=== PATIENT | female | born 1965 | race Caucasian/White ===

== ENCOUNTER 2020-02-03 16:12 | Emergency (ER) | payer OTHER ==
[~2020-02-03] VITALS: Ht 160 cm; Wt 93.0 kg
[2020-02-03] MEDS ORDERED: LANTUS SUBQ (16:20)
[2020-02-03] MEDS ORDERED: METFORMIN HCL500 M3 PO (16:20)
[2020-02-03] MEDS ORDERED: LIALDA1.2 GM PO (16:20)
[2020-02-03] MEDS ORDERED: LIPITOR20 MG PO (16:21)
[2020-02-03] MEDS ORDERED: PRINIVIL10 MG PO (16:21)
[2020-02-03 16:54] LABS: URINE BILIRUBIN NEGATIVE (Negative); URINE BLOOD TRACE (Negative); URINE CLARITY CLEAR; URINE COLOR YELLOW; URINE GLUCOSE-RANDOM NEGATIVE (Negative); URINE KETONES NEGATIVE (Negative); URINE LEUKOCYTES-REFLEX 1+ (Negative); URINE NITRITE-REFLEX NEGATIVE (Negative); URINE PROTEIN NEGATIVE (Negative); URINE UROBILINOGEN 0.2 E.U./dl (0.2-1.0)
[2020-02-03 16:59] LABS: HYALINE CASTS 0-3 Few /LPF (None Seen)
[2020-02-03 17:00] LABS: CRYSTALS None Seen /LPF (None Seen); MUCUS 0-3 Light strn/LPF (None Seen); SQUAMOUS >10 Many /LPF (0-3); URINE RBC 0-2 Rare /HPF (0-2)
[2020-02-03 17:01] LABS: ABSOLUTE LYMPHOCYTES 2.2 thou/uL (0.8-5.3); ABSOLUTE MONOCYTES 0.5 thou/uL (0.0-1.2); ABSOLUTE NEUTROPHILS 1.7 thou/uL (1.6-8.1); BASOPHILS 0.8 %; EOSINOPHILS 0.2 %; HEMATOCRIT 44.1 % (37.0-47.0); HEMOGLOBIN 15.6 gm/dL (12.0-15.0); LYMPHOCYTES 48.8 %; MCH 33.7 pg (26.0-34.0); MCHC 35.3 g/dL (28.0-37.0); MCV 95.5 fL (80.0-100.0); MONOCYTES 11.2 %; NUCLEATED RBCS 0 /100WBC; PLATELET COUNT* 172 thou/uL (150-400); RBC 4.62 mil/uL (4.20-5.00); WBC 4.4 thou/uL (4.0-11.0)
[2020-02-03 17:33] LABS: CALCIUM 8.1 mg/dL (8.5-10.1); CREATININE 1.1 mg/dL (0.6-1.3); POTASSIUM 3.6 mmol/L (3.5-5.1)
[2020-02-03 17:41] LABS: ALBUMIN 3.4 g/dL (3.4-5.0); TOTAL BILIRUBIN 0.4 mg/dL (<0.1-1.0); TOTAL PROTEIN 7.5 g/dL (6.4-8.2)
[2020-02-03] MEDS ORDERED: HYDROCODON-ACE1 EAC7 PO (18:14)
[2020-02-03] MEDS ORDERED: ZPAK PO (18:14)
[2020-02-03 18:34] VITALS: BP 104/60
== END 2020-02-03 18:36 | disposition home or self-care (01) ==
LOC: M.ERS 16:12
PROVIDERS: Personal Emergency Response Attendant
DX: N39.0 Urinary tract infection, site not specified (principal); R11.2 Nausea with vomiting, unspecified; E11.9 Type 2 diabetes mellitus without complications; K50.90 Crohn's disease, unspecified, without complications; Z79.4 Long term (current) use of insulin; Z90.710 Acquired absence of both cervix and uterus

== ENCOUNTER 2020-02-08 10:56 | Emergency (ER) | payer OTHER ==
[~2020-02-08] VITALS: Ht 162.6 cm; Wt 90.7 kg
[~2020-02-08 10:56] MED LIST: HYDROCODON-ACE1 EAC7 PO; LANTUS SUBQ; LIALDA1.2 GM PO; LIPITOR20 MG PO; METFORMIN HCL500 M3 PO; PRINIVIL10 MG PO; ZPAK PO
[2020-02-08 11:58] LABS: ABSOLUTE LYMPHOCYTES 1.6 thou/uL (0.8-5.3); ABSOLUTE MONOCYTES 0.5 thou/uL (0.0-1.2); ABSOLUTE NEUTROPHILS 5.1 thou/uL (1.6-8.1); BASOPHILS 0.3 %; HEMATOCRIT 43.9 % (37.0-47.0); HEMOGLOBIN 15.7 gm/dL (12.0-15.0); LYMPHOCYTES 21.8 %; MCH 33.5 pg (26.0-34.0); MCHC 35.7 g/dL (28.0-37.0); MCV 93.9 fL (80.0-100.0); MONOCYTES 6.8 %; MPV 7.3 fl. (7.2-11.1); NUCLEATED RBCS 0 /100WBC; PLATELET COUNT* 199 thou/uL (150-400); POLYS 71.1 %; RBC 4.67 mil/uL (4.20-5.00); RDW-CV 12.6 % (10.5-14.5); WBC 7.2 thou/uL (4.0-11.0)
[2020-02-08 12:06] LABS: CALCIUM 8.5 mg/dL (8.5-10.1); CREATININE 0.8 mg/dL (0.6-1.3); POTASSIUM 3.2 mmol/L (3.5-5.1)
[2020-02-08 12:10] LABS: ALBUMIN 3.3 g/dL (3.4-5.0); TOTAL BILIRUBIN 0.6 mg/dL (<0.1-1.0)
[2020-02-08] MEDS ORDERED: ZOFRAN ODT4 MG DISSOLVE (13:38)
[2020-02-08] MEDS ORDERED: DIAZEPAM2 MG PO (13:38)
[2020-02-08 13:50] VITALS: BP 119/79
--- NOTE | 2020-02-09 10:41 | EKG ---
[place] [address] ELECTROCARDIOGRAM REPORT Name: KIMBER TATUM Room: [facility]#: [id number] Admission: 02/08/20 Attend Phys: Discharge: 02/08/20 Date of : 67 Date of Service: 02/08/20 1107 Report #: [id number] THIS REPORT FOR: //name// [facility] ED Test Date: 2020-02-08 Test Time: 11:07:28 Pat Name: KIMBER TATUM Department: Room: Gender: [place] [employer]: [facility] : 1965 Requested By: Fito Vela Order Number: [id number] MD: Taz Stewart Measurements Intervals [place] Rate: 72 P: 36 NV: 149 QRS: 24 QRSD: 118 T: 17 QT: 409 QTc: 448 Interpretive Statements Sinus rhythm Probable left atrial enlargement Nonspecific intraventricular conduction delay No previous ECG available for comparison Electronically Signed On 02-09-2020 10:41:09 CDT by Taz Stewart [email or web address] <ELECTRONICALLY SIGNED> By: Taz Stewart MD, [facility] 02/09/20 1041 06 06 Taz Stewart MD, [facility] /EPI
--- NOTE | 2020-02-09 15:21 | EKG ---
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: [facility] : 1965 Requested By: Fito Vela Order Number: [id number] Rehan MD: Taz Stewart Measurements Intervals [place] Rate: 72 P: 36 [place]: 149 QRS: 24 QRSD: 118 T: 17 QT: 409 QTc: 448 Interpretive Statements Sinus rhythm Probable left atrial enlargement Nonspecific intraventricular conduction delay No previous ECG available for comparison Electronically Signed On 02-09-2020 15:21:20 CDT by Taz Stewart [email or web address] <ELECTRONICALLY SIGNED> By: Taz Stewart MD, [facility] 02/09/20 1521 06 Taz Stewart MD, [facility] /EPI
== END 2020-02-08 13:50 | disposition home or self-care (01) ==
LOC: M.ERS 10:56
PROVIDERS: Emergency Medicine Emergency Medical Services
DX: H81.399 Other peripheral vertigo, unspecified ear (principal); H55.09 Other forms of nystagmus; E11.9 Type 2 diabetes mellitus without complications; K50.90 Crohn's disease, unspecified, without complications; Z90.710 Acquired absence of both cervix and uterus; Z79.4 Long term (current) use of insulin